=== PATIENT | male | born 1965 | race Caucasian/White ===

== ENCOUNTER 2018-11-24 05:32 | Inpatient (IN) ==
[2018-11-23 12:01] LABS: Basophils # 0.1 10*3/uL (0.0-0.2); Basophils % 1.4 % (0.0-0.8); Eosinophils # 0.3 10*3/uL (0.0-0.87); Eosinophils % 5.5 % (0.00-10.9); Hematocrit 47.5 VOL% (42.0-52.0); Hemoglobin 14.7 GM/DL (14.0-18.0); Immature Granulocytes % 0.4 %; Immature Granulocytes Absolute 0.02 #; Lymphocytes # 1.6 10*3/uL (1.4-4.0); Lymphocytes % 32.5 % (21.2-54.2); Mean Corpuscular HGB Conc 30.9 GM/DL (32-36); Mean Corpuscular Hemoglobin 26 PG (27-34); Mean Corpuscular Volume 82.6 FL (87-102); Mean Platelet Volume 10.2 FL (9.6-12.0); Monocytes # 0.4 10*3/uL (0.11-0.8); Monocytes % 7.9 % (1.7-12.7); Neutrophils # 2.6 10*3/uL (1.4-7.4); Neutrophils % 52.3 % (38.7-73.9); Platelet Count 242 T/CUMM (130-400); Red Blood Count 5.75 MC/CUMM (3.8-5.5); Red Cell Distribution Width 13.1 % (9.3-17.3); White Blood Count 4.9 T/CUMM (4-12)
[2018-11-23 12:03] LABS: PT Patient Result 11.1 SECS; Partial Thromboplastin Time 26.5 SECS (0-40)
[2018-11-23 12:32] LABS: Calcium 9.5 MG/DL (8.5-10.1); Osmolality,Calculated 274.8 MOS/KG (273-304); Potassium 4.3 MMOL/L (3.5-5.1)
[2018-11-23 13:01] LABS: Apearance,Urine CLEAR (Clear); Bilirubin,Urine Negative (Negative); Blood, Urine Negative (Negative); Glucose,Urine (UA) >=500 mg/dL (Negative); Ketones,Urine Negative (Negative); Nitrite,Urine Negative (Negative); Protein,Urine Negative; Urine Color Straw (Yellow); Urine Specific Gravity 1.013 (1.001-1.035); Urine Urobilinogen < 2.0 EU/DL (0.2-1.0)
[~2018-11-24 05:32] MED LIST: CEFUROXIME INJ 1,500 MG in SYRINGE 1 EACH IV ONE; LACTATED RINGERS 1,000 ML IV SCH; PAPAVERINE 60 MG/2 ML VIAL ONE; SODIUM CHLORIDE 0.9% 1,000 ML IV PRN; TISSUE ADHESIVE 1 EACH APPLICATOR TOP ONE; VANCOMYCIN 1,000 MG VIAL ONE
[2018-11-24] MEDS ORDERED: CEFUROXIME 1,500 MG VIAL ONE (05:47)
[2018-11-24] MEDS ORDERED: DIAZEPAM 5 MG TABLET ONE (05:47)
[2018-11-24] MEDS ORDERED: FAMOTIDINE 20 MG TABLET ONE (05:47)
[2018-11-24] MEDS ORDERED: DIAZEPAM 5 MG TABLET PO STA (05:56)
[2018-11-24] MEDS ORDERED: FAMOTIDINE 20 MG TABLET PO STA (05:57)
[2018-11-24] MEDS ORDERED: NITROPRUSSIDE 50 MG/2 ML VIAL ONE (07:45)
[2018-11-24] MEDS ORDERED: ATROPINE 1 MG/10 ML SYRINGE ONE (07:46)
[2018-11-24] MEDS ORDERED: ALBUMIN 5% 12.5 GM/250 ML VIAL IV ONE (07:46)
[2018-11-24] MEDS ORDERED: CALCIUM CHLORIDE 1,000 MG/10 ML SYRINGE IV ONE (07:46)
[2018-11-24] MEDS ORDERED: SODIUM BICARBONATE 50 MEQ/50 ML VIAL IV ONE ×2 (07:46→11:18)
[2018-11-24 07:50] LABS: ABG Base Excess -0.2 MMOL/L (-2.5-2.5); ABG HCO3 24.3 MMOL/L (20-26); ABG Oxygen Saturation 99.7 % (95-100); ABG PCO2 40.6 MM HG (35-48); ABG PH 7.392 (7.35-7.45); ABG TCO2 21.6 MMOL/L (23-27); Glucose Heart Surgery 171 MG/DL (74-106); Hematocrit Heart Surgery 40.3 PERCENT (42-52); Hemoglobin Heart Surgery 13.1 G/DL (14.0-18.0); Ionized Calcium Arterial 1.15 MMOL/L (1.21-1.46); PCO2 Patient Temp Arterial 40.6 MMHG; PH Patient Temp Arterial 7.392; Patient Temperature 37 CELCIUS; Potassium Heart/CVR 4.1 MMOL/L (3.5-5.1); Sodium Heart/CVR 137 MMOL/L (135-145)
[2018-11-24 09:16] LABS: Hematocrit Heart Surgery 32.3 PERCENT (42-52); Hemoglobin Heart Surgery 10.5 G/DL (14.0-18.0); PCO2 Patient Temp Venous 38.8 MM HG; PH Patient Temp Venous 7.431; PO2 Patient Temp Venous 32.1 MM HG; Potassium Heart/CVR 4.5 MMOL/L (3.5-5.1); VBG Base Excess 1.6 MEQ/L (0-4); VBG HCO3 25.3 MEQ/L (24-28); VBG Oxygen Saturation 67.8 %; VBG PCO2 40.8 MMHG (41-51); VBG PH 7.416; VBG PO2 34.4 MMHG (17-40)
[2018-11-24 09:32] LABS: Apearance,Urine CLEAR (Clear); Bilirubin,Urine Negative (Negative); Blood, Urine Negative (Negative); Glucose,Urine (UA) >=500 mg/dL (Negative); Ketones,Urine Negative (Negative); Nitrite,Urine Negative (Negative); Protein,Urine Negative; Urine Color Straw (Yellow); Urine Specific Gravity 1.021 (1.001-1.035); Urine Urobilinogen < 2.0 EU/DL (0.2-1.0); WBC,Urine 1 /HPF (0-6)
[2018-11-24 09:37] LABS: Hematocrit Heart Surgery 30.1 PERCENT (42-52); Hemoglobin Heart Surgery 9.7 G/DL (14.0-18.0); PCO2 Patient Temp Venous 34.9 MM HG; PH Patient Temp Venous 7.465; PO2 Patient Temp Venous 32.6 MM HG; VBG Base Excess 1.7 MEQ/L (0-4); VBG HCO3 25.6 MEQ/L (24-28); VBG Oxygen Saturation 77.4 %; VBG PCO2 40.4 MMHG (41-51); VBG PH 7.42; VBG PO2 40.2 MMHG (17-40)
[2018-11-24 10:08] LABS: Hematocrit Heart Surgery 28.8 PERCENT (42-52); Hemoglobin Heart Surgery 9.3 G/DL (14.0-18.0); PCO2 Patient Temp Venous 32.2 MM HG; PH Patient Temp Venous 7.484; PO2 Patient Temp Venous 32.5 MM HG; Potassium Heart/CVR 5.5 MMOL/L (3.5-5.1); VBG Base Excess 1.3 MEQ/L (0-4); VBG HCO3 25.3 MEQ/L (24-28); VBG Oxygen Saturation 80.6 %; VBG PH 7.425; VBG PO2 42.9 MMHG (17-40)
[2018-11-24 10:38] LABS: Hematocrit Heart Surgery 28.1 PERCENT (42-52); Hemoglobin Heart Surgery 9.1 G/DL (14.0-18.0); PCO2 Patient Temp Venous 27.8 MM HG; PH Patient Temp Venous 7.529; PO2 Patient Temp Venous 25.6 MM HG; Potassium Heart/CVR 5.4 MMOL/L (3.5-5.1); VBG Base Excess 1.1 MEQ/L (0-4); VBG Oxygen Saturation 71.7 %; VBG PCO2 33.7 MMHG (41-51); VBG PH 7.469
[2018-11-24] MEDS ORDERED: PHENYLEPHRINE DRIP 40 MG/250 ML PREMIX IV ONE (10:46)
[2018-11-24] MEDS ORDERED: THROMBIN TOPICAL (RECOMBINANT) 5,000 UNIT VIAL TOP ONE (11:17)
[2018-11-24] MEDS ORDERED: DEXTROSE 5% KCL 20 MEQ 40 MEQ/2,000 ML BAG IV ONE (11:18)
[2018-11-24] MEDS ORDERED: ALBUMIN 25% 25 GM/100 ML VIAL IV ONE (11:18)
[2018-11-24] MEDS ORDERED: PROTAMINE SULFATE 250 MG/25 ML VIAL IV ONE (11:18)
[2018-11-24] MEDS ORDERED: MANNITOL 100 GM/500 ML BAG IV ONE (11:18)
[2018-11-24] MEDS ORDERED: MAGNESIUM SULFATE 10 GM/20 ML VIAL IV ONE (11:19)
[2018-11-24] MEDS ORDERED: HEPARIN 10,000 UNIT/10 ML VIAL ONE (11:19)
[2018-11-24] MEDS ORDERED: methylPREDNISolone SOD SUC 1,000 MG/8 ML VIAL ONE (11:19)
[2018-11-24] MEDS ORDERED: FUROSEMIDE 20 MG/2 ML VIAL ONE (11:19)
[2018-11-24 11:29] LABS: ABG HCO3 22.8 MMOL/L (20-26); ABG Oxygen Saturation 98.9 % (95-100); ABG PCO2 33.8 MM HG (35-48); Glucose Heart Surgery 309 MG/DL (74-106); Hematocrit Heart Surgery 30.5 PERCENT (42-52); Hemoglobin Heart Surgery 9.9 G/DL (14.0-18.0); PCO2 Patient Temp Arterial 33.8 MMHG; Patient Temperature 37 CELCIUS; Sodium Heart/CVR 129 MMOL/L (135-145)
[2018-11-24] MEDS ORDERED: POTASSIUM CHLORIDE RIDER 100 ML IV ONE (11:51)
[2018-11-24] MEDS ORDERED: CALCIUM CHLORIDE 1,000 MG/10 ML SYRINGE IV PRN (12:09)
[2018-11-24] MEDS ORDERED: CHLORHEXIDINE 4% SOLN 118 ML BOTTLE TOP PRN (12:09)
[2018-11-24] MEDS ORDERED: MAGNESIUM SULF RIDER 2 GM in PREMIX 1 EACH IV PRN (12:09)
[2018-11-24] MEDS ORDERED: ONDANSETRON 4 MG/2 ML VIAL IV PRN (12:09)
[2018-11-24] MEDS ORDERED: MAGNESIUM SULF RIDER 4 GM in PREMIX 1 EACH IV PRN (12:09)
[2018-11-24] MEDS ORDERED: INSULIN REGULAR 100 UNIT/ML IV PRN (12:09)
[2018-11-24] MEDS ORDERED: ACETAMINOPHEN 650 MG SUPP RECTAL PRN (12:09)
[2018-11-24] MEDS ORDERED: MIDAZOLAM 2 MG/2 ML VIAL IV PRN (12:09)
[2018-11-24] MEDS ORDERED: DEXTROSE 50% 25 GM/50 ML SYRINGE IV PRN ×2 (12:09)
[2018-11-24] MEDS: SODIUM CHLORIDE 0.45% 1,000 ML IV SCH (12:10)
[2018-11-24] MEDS ORDERED: HEPARIN/NACL 0.9% 2 UNITS/ML 500 ML IV ONE (12:20)
[2018-11-24] MEDS ORDERED: CALCIUM CHLORIDE 1,000 MG/10 ML VIAL IV ONE (12:20)
[2018-11-24] MEDS ORDERED: SEVOFLURANE 1 UNIT/15 MINUTE INH ONE (12:20)
[2018-11-24] MEDS ORDERED: SUFentanil 250 MCG/5 ML AMP ONE (12:20)
[2018-11-24] MEDS ORDERED: SODIUM CHLORIDE 0.9% 1,000 ML IV ONE (12:21)
[2018-11-24] MEDS ORDERED: LACTATED RINGERS 1,000 ML IV ONE (12:21)
[2018-11-24] MEDS ORDERED: VECURONIUM 10 MG VIAL IV ONE (12:21)
[2018-11-24] MEDS ORDERED: PHENYLEPHRINE 10 MG/1 ML VIAL IV ONE (12:21)
[2018-11-24] MEDS ORDERED: MIDAZOLAM 10 MG/2 ML VIAL ONE (12:21)
[2018-11-24] MEDS ORDERED: AMINOCAPROIC ACID 5,000 MG/20 ML VIAL ONE (12:21)
[2018-11-24] MEDS ORDERED: NITROGLYCERIN DRIP 50 MG/250 ML BOTTLE IV ONE (12:21)
[2018-11-24] MEDS ORDERED: SODIUM CHLORIDE 0.9% 500 ML IV ONE (12:21)
[2018-11-24] MEDS: SODIUM CHLORIDE 0.9% 250 ML IV PRN ×12 (12:27→18:21)
[2018-11-24] MEDS ORDERED: INSULIN REGULAR DRIP 100 ML IV SCH (12:30)
[2018-11-24] MEDS ORDERED: SODIUM CHLORIDE 0.45% 1,000 ML IV SCH (12:30)
[2018-11-24 12:53] LABS: ABG Base Excess -0.5 MMOL/L (-2.5-2.5); ABG Oxygen Saturation 95.8 % (95-100); ABG PCO2 36.2 MM HG (35-48); ABG PH 7.422 (7.35-7.45); ABG PO2 76.1 MM HG (80-95); ABG TCO2 20.9 MMOL/L (23-27); Basophils % 0.6 % (0.0-0.8); Eosinophils # 0.1 10*3/uL (0.0-0.87); Eosinophils % 1.1 % (0.00-10.9); Glucose Heart Surgery 218 MG/DL (74-106); Hematocrit 35.4 VOL% (42.0-52.0); Hematocrit Heart Surgery 36.3 PERCENT (42-52); Hemoglobin 11.4 GM/DL (14.0-18.0); Hemoglobin Heart Surgery 11.8 G/DL (14.0-18.0); Immature Granulocytes % 0.4 %; Immature Granulocytes Absolute 0.03 #; Lymphocytes # 0.6 10*3/uL (1.4-4.0); Lymphocytes % 8.6 % (21.2-54.2); Mean Corpuscular HGB Conc 32.2 GM/DL (32-36); Mean Corpuscular Hemoglobin 26 PG (27-34); Mean Platelet Volume 10.4 FL (9.6-12.0); Monocytes # 0.3 10*3/uL (0.11-0.8); Monocytes % 4.1 % (1.7-12.7); Neutrophils # 6.1 10*3/uL (1.4-7.4); Neutrophils % 85.2 % (38.7-73.9); Platelet Count 181 T/CUMM (130-400); Potassium Heart/CVR 3.4 MMOL/L (3.5-5.1); Red Blood Count 4.37 MC/CUMM (3.8-5.5); Red Cell Distribution Width 12.9 % (9.3-17.3); White Blood Count 7.1 T/CUMM (4-12)
[2018-11-24] MEDS: POTASSIUM CHLORIDE RIDER 20 MEQ in PREMIX 1 EACH IV PRN ×3 (12:58→16:12)
[2018-11-24 13:03] LABS: INR 1.1; PT Patient Result 11.4 SECS; Partial Thromboplastin Time 25.9 SECS (0-40)
[2018-11-24 13:08] LABS: Blood Urea Nitrogen 17 MG/DL (7-18); Calcium 9.8 MG/DL (8.5-10.1); Glucose 210 MG/DL (74-106); Osmolality,Calculated 284.5 MOS/KG (273-304); Potassium 3.4 MMOL/L (3.5-5.1); Sodium 139 MMOL/L (136-145)
[2018-11-24] MEDS ORDERED: ASPIRIN 325 MG TABLET PO ONE (13:20)
[2018-11-24] MEDS: ALBUMIN 5% 12.5 GM in PREMIX 1 EACH IV PRN ×4 (13:25→18:15)
[2018-11-24 15:46] LABS: ABG Base Excess -1.1 MMOL/L (-2.5-2.5); ABG HCO3 23.2 MMOL/L (20-26); ABG Oxygen Saturation 97.5 % (95-100); ABG PCO2 37.2 MM HG (35-48); ABG PH 7.413 (7.35-7.45); ABG PO2 113.2 MM HG (80-95); ABG TCO2 24.4 MMOL/L (23-27); Glucose Heart Surgery 118 MG/DL (74-106); Hemoglobin Heart Surgery 10.9 G/DL (14.0-18.0); Potassium Heart/CVR 3.6 MMOL/L (3.5-5.1)
[2018-11-24] MEDS: POTASSIUM CHLORIDE RIDER 10 MEQ in PREMIX 1 EACH IV PRN (16:44)
[2018-11-24 17:34] LABS: ABG Base Excess -3.4 MMOL/L (-2.5-2.5); ABG HCO3 22.5 MMOL/L (20-26); ABG Oxygen Saturation 97.5 % (95-100); ABG PCO2 44.4 MM HG (35-48); ABG PH 7.323 (7.35-7.45); ABG PO2 120.4 MM HG (80-95); ABG TCO2 23.9 MMOL/L (23-27); Glucose Heart Surgery 119 MG/DL (74-106); Hemoglobin Heart Surgery 10.3 G/DL (14.0-18.0)
[2018-11-24 20:12] LABS: ABG Base Excess -2.8 MMOL/L (-2.5-2.5); ABG HCO3 21.7 MMOL/L (20-26); ABG Oxygen Saturation 97.3 % (95-100); ABG PCO2 36.4 MM HG (35-48); ABG PH 7.393 (7.35-7.45); ABG PO2 107.4 MM HG (80-95); ABG TCO2 22.8 MMOL/L (23-27); Glucose Heart Surgery 170 MG/DL (74-106); Hemoglobin Heart Surgery 10.2 G/DL (14.0-18.0); Potassium Heart/CVR 4.2 MMOL/L (3.5-5.1)
[2018-11-24] MEDS: CEFUROXIME INJ 1,500 MG in SYRINGE 1 EACH IV SCH (20:12)
[2018-11-24] MEDS: CHLORHEXIDINE 0.12% ORAL RINSE 60 ML BOTTLE SWISH/SPIT SCH (21:38)
[2018-11-25] MEDS: MORPHINE 4 MG/1 ML VIAL IV PRN ×4 (00:25→17:46)
[2018-11-25] MEDS: SODIUM CHLORIDE 0.45% 1,000 ML IV SCH (01:33)
[2018-11-25 04:22] LABS: Basophils % 0.1 % (0.0-0.8); Hematocrit 29.7 VOL% (42.0-52.0); Hemoglobin 9.4 GM/DL (14.0-18.0); Immature Granulocytes % 0.6 %; Immature Granulocytes Absolute 0.05 #; Lymphocytes # 0.4 10*3/uL (1.4-4.0); Lymphocytes % 4.4 % (21.2-54.2); Mean Corpuscular HGB Conc 31.6 GM/DL (32-36); Mean Corpuscular Hemoglobin 26 PG (27-34); Mean Corpuscular Volume 82.7 FL (87-102); Mean Platelet Volume 10.4 FL (9.6-12.0); Monocytes # 0.6 10*3/uL (0.11-0.8); Monocytes % 6.5 % (1.7-12.7); Neutrophils # 7.9 10*3/uL (1.4-7.4); Neutrophils % 88.4 % (38.7-73.9); Platelet Count 163 T/CUMM (130-400); Red Blood Count 3.59 MC/CUMM (3.8-5.5); Red Cell Distribution Width 13.3 % (9.3-17.3); White Blood Count 8.9 T/CUMM (4-12)
[2018-11-25 04:50] LABS: Hypochromasia Slight; Lymphocytes 3 % (20-55); Platelet Estimate Decreased; Segmented Neutrophils 96 % (50-85); Total Cells Counted 100
[2018-11-25 05:08] LABS: Calcium 7.8 MG/DL (8.5-10.1); Osmolality,Calculated 284.1 MOS/KG (273-304); Potassium 3.8 MMOL/L (3.5-5.1)
[2018-11-25] MEDS: POTASSIUM CHLORIDE RIDER 20 MEQ in PREMIX 1 EACH IV PRN (06:42)
[2018-11-25] MEDS: POTASSIUM CHLORIDE RIDER 10 MEQ in PREMIX 1 EACH IV PRN (07:11)
[2018-11-25] MEDS ORDERED: KETOROLAC 30 MG/1 ML VIAL IV ONE (07:36)
[2018-11-25] MEDS: CEFUROXIME INJ 1,500 MG in SYRINGE 1 EACH IV SCH ×2 (08:25→20:24)
[2018-11-25] MEDS: CHLORHEXIDINE 0.12% ORAL RINSE 60 ML BOTTLE SWISH/SPIT SCH ×2 (08:33→20:24)
[2018-11-25] MEDS: FUROSEMIDE 40 MG TABLET PO SCH (08:33)
[2018-11-25] MEDS: ASPIRIN EC 325 MG TABLET PO SCH (08:33)
[2018-11-25] MEDS: PANTOPRAZOLE 40 MG VIAL IV SCH (10:45)
[2018-11-25] MEDS: CLOPIDOGREL 75 MG TABLET PO SCH (10:54)
[2018-11-25] MEDS: MORPHINE 10 MG/1 ML VIAL IV PRN ×2 (20:24→22:28)
[2018-11-25] MEDS: ATORVASTATIN 40 MG TABLET PO SCH (20:24)
[2018-11-25] MEDS: INSULIN GLARGINE 100 UNIT/ML SUBCUT SCH (21:37)
[2018-11-26] MEDS: MORPHINE 10 MG/1 ML VIAL IV PRN ×5 (00:30→22:20)
[2018-11-26 04:40] LABS: Calcium 8.5 MG/DL (8.5-10.1); Osmolality,Calculated 282.5 MOS/KG (273-304); Potassium 4.1 MMOL/L (3.5-5.1)
[2018-11-26 04:42] LABS: Basophils % 0.2 % (0.0-0.8); Hemoglobin 9.2 GM/DL (14.0-18.0); Immature Granulocytes % 0.6 %; Immature Granulocytes Absolute 0.06 #; Lymphocytes # 1.2 10*3/uL (1.4-4.0); Lymphocytes % 12.1 % (21.2-54.2); Mean Corpuscular HGB Conc 30.7 GM/DL (32-36); Mean Corpuscular Hemoglobin 26 PG (27-34); Mean Corpuscular Volume 84.7 FL (87-102); Mean Platelet Volume 10.8 FL (9.6-12.0); Monocytes % 10.6 % (1.7-12.7); Neutrophils # 7.4 10*3/uL (1.4-7.4); Neutrophils % 76.5 % (38.7-73.9); Platelet Count 177 T/CUMM (130-400); Red Blood Count 3.54 MC/CUMM (3.8-5.5); Red Cell Distribution Width 13.4 % (9.3-17.3); White Blood Count 9.6 T/CUMM (4-12)
[2018-11-26] MEDS: FUROSEMIDE 40 MG TABLET PO SCH (09:25)
[2018-11-26] MEDS: ASPIRIN EC 325 MG TABLET PO SCH (09:25)
[2018-11-26] MEDS: CLOPIDOGREL 75 MG TABLET PO SCH (09:25)
[2018-11-26] MEDS: CHLORHEXIDINE 0.12% ORAL RINSE 60 ML BOTTLE SWISH/SPIT SCH ×2 (09:30→21:19)
[2018-11-26] MEDS: PANTOPRAZOLE 40 MG VIAL IV SCH (09:30)
[2018-11-26] MEDS: METOPROLOL TARTRATE 25 MG TABLET PO SCH ×2 (09:45→21:21)
[2018-11-26] MEDS: INSULIN GLARGINE 100 UNIT/ML SUBCUT SCH (21:20)
[2018-11-26] MEDS: ATORVASTATIN 40 MG TABLET PO SCH (21:21)
[2018-11-26] MEDS: OMEGA 3 ACID ETHYL ESTERS 1 GM CAPSULE PO SCH (21:21)
[2018-11-27 05:39] LABS: Calcium 8.4 MG/DL (8.5-10.1); Osmolality,Calculated 278.8 MOS/KG (273-304); Potassium 3.8 MMOL/L (3.5-5.1)
[2018-11-27 05:41] LABS: Basophils % 0.3 % (0.0-0.8); Eosinophils % 0.5 % (0.00-10.9); Hematocrit 30.4 VOL% (42.0-52.0); Hemoglobin 9.4 GM/DL (14.0-18.0); Immature Granulocytes % 0.5 %; Immature Granulocytes Absolute 0.04 #; Lymphocytes # 1.3 10*3/uL (1.4-4.0); Lymphocytes % 15.3 % (21.2-54.2); Mean Corpuscular HGB Conc 30.9 GM/DL (32-36); Mean Corpuscular Hemoglobin 26 PG (27-34); Mean Corpuscular Volume 84.4 FL (87-102); Mean Platelet Volume 10.7 FL (9.6-12.0); Monocytes # 0.9 10*3/uL (0.11-0.8); Monocytes % 10.6 % (1.7-12.7); Neutrophils # 6.3 10*3/uL (1.4-7.4); Neutrophils % 72.8 % (38.7-73.9); Platelet Count 189 T/CUMM (130-400); Red Cell Distribution Width 13.1 % (9.3-17.3); White Blood Count 8.6 T/CUMM (4-12)
[2018-11-27] MEDS: FENOFIBRATE 160 MG TABLET PO SCH (08:38)
[2018-11-27] MEDS: OMEGA 3 ACID ETHYL ESTERS 1 GM CAPSULE PO SCH ×2 (08:38→21:54)
[2018-11-27] MEDS: ASPIRIN EC 325 MG TABLET PO SCH (08:39)
[2018-11-27] MEDS: PANTOPRAZOLE 40 MG TABLET PO SCH (08:39)
[2018-11-27] MEDS: METOPROLOL TARTRATE 25 MG TABLET PO SCH ×2 (08:39→21:54)
[2018-11-27] MEDS: CLOPIDOGREL 75 MG TABLET PO SCH (08:39)
[2018-11-27] MEDS: FUROSEMIDE 40 MG TABLET PO SCH (08:39)
[2018-11-27] MEDS: POTASSIUM CHLORIDE RIDER 10 MEQ in PREMIX 1 EACH IV PRN ×2 (08:40→09:36)
[2018-11-27] MEDS ORDERED: HEMP OIL PO SCH (09:00)
[2018-11-27] MEDS ORDERED: METOPROLOL TARTRATE 25 MG TABLET PO ONE (09:02)
[2018-11-27] MEDS: CHLORHEXIDINE 0.12% ORAL RINSE 60 ML BOTTLE SWISH/SPIT SCH ×2 (09:25→21:57)
[2018-11-27] MEDS: ATORVASTATIN 40 MG TABLET PO SCH (21:54)
[2018-11-27] MEDS: INSULIN GLARGINE 100 UNIT/ML SUBCUT SCH (21:54)
[2018-11-27] MEDS: MORPHINE 4 MG/1 ML VIAL IV PRN (22:01)
[2018-11-28] MEDS ORDERED: BISACODYL 5 MG TABLET PO PRN (07:35)
[2018-11-28] MEDS: PANTOPRAZOLE 40 MG TABLET PO SCH (10:02)
[2018-11-28] MEDS: OMEGA 3 ACID ETHYL ESTERS 1 GM CAPSULE PO SCH ×2 (10:02→20:36)
[2018-11-28] MEDS: METOPROLOL TARTRATE 25 MG TABLET PO SCH ×2 (10:03→20:37)
[2018-11-28] MEDS: DOCUSATE SODIUM 100 MG CAPSULE PO SCH ×2 (10:03→20:36)
[2018-11-28] MEDS: ASPIRIN EC 325 MG TABLET PO SCH (10:03)
[2018-11-28] MEDS: FUROSEMIDE 40 MG TABLET PO SCH (10:03)
[2018-11-28] MEDS: FENOFIBRATE 160 MG TABLET PO SCH (10:03)
[2018-11-28] MEDS: CLOPIDOGREL 75 MG TABLET PO SCH (10:03)
[2018-11-28] MEDS: CHLORHEXIDINE 0.12% ORAL RINSE 60 ML BOTTLE SWISH/SPIT SCH ×2 (10:10→20:37)
[2018-11-28] MEDS ORDERED: FUROSEMIDE 40 MG/4 ML VIAL IV ONE (11:36)
[2018-11-28] MEDS ORDERED: INSULIN GLARGINE 100 UNIT/ML SUBCUT SCH (15:34)
[2018-11-28] MEDS: metFORMIN 500 MG TABLET PO SCH (18:08)
[2018-11-28] MEDS: ATORVASTATIN 40 MG TABLET PO SCH (20:36)
[2018-11-28] MEDS: MORPHINE 4 MG/1 ML VIAL IV PRN (21:33)
[2018-11-29 05:21] LABS: Basophils # 0.1 10*3/uL (0.0-0.2); Basophils % 0.7 % (0.0-0.8); Eosinophils # 0.2 10*3/uL (0.0-0.87); Eosinophils % 3.3 % (0.00-10.9); Hematocrit 34.1 VOL% (42.0-52.0); Hemoglobin 10.6 GM/DL (14.0-18.0); Immature Granulocytes % 0.8 %; Immature Granulocytes Absolute 0.06 #; Lymphocytes # 1.9 10*3/uL (1.4-4.0); Lymphocytes % 25.2 % (21.2-54.2); Mean Corpuscular HGB Conc 31.1 GM/DL (32-36); Mean Corpuscular Hemoglobin 26 PG (27-34); Mean Corpuscular Volume 82.8 FL (87-102); Mean Platelet Volume 10.4 FL (9.6-12.0); Monocytes # 0.7 10*3/uL (0.11-0.8); Monocytes % 9.8 % (1.7-12.7); Neutrophils # 4.4 10*3/uL (1.4-7.4); Neutrophils % 60.2 % (38.7-73.9); Platelet Count 297 T/CUMM (130-400); Red Blood Count 4.12 MC/CUMM (3.8-5.5); White Blood Count 7.3 T/CUMM (4-12)
[2018-11-29 05:39] LABS: Calcium 8.8 MG/DL (8.5-10.1); Osmolality,Calculated 276.1 MOS/KG (273-304); Potassium 3.3 MMOL/L (3.5-5.1)
[2018-11-29] MEDS: POTASSIUM CHLORIDE RIDER 20 MEQ in PREMIX 1 EACH IV PRN ×2 (09:15→11:09)
[2018-11-29] MEDS: CLOPIDOGREL 75 MG TABLET PO SCH (09:17)
[2018-11-29] MEDS: OMEGA 3 ACID ETHYL ESTERS 1 GM CAPSULE PO SCH ×2 (09:17→20:47)
[2018-11-29] MEDS: ASPIRIN EC 325 MG TABLET PO SCH (09:17)
[2018-11-29] MEDS: metFORMIN 500 MG TABLET PO SCH ×2 (09:17→17:57)
[2018-11-29] MEDS: PANTOPRAZOLE 40 MG TABLET PO SCH (09:17)
[2018-11-29] MEDS: FENOFIBRATE 160 MG TABLET PO SCH (09:17)
[2018-11-29] MEDS: FUROSEMIDE 40 MG TABLET PO SCH (09:17)
[2018-11-29] MEDS: DOCUSATE SODIUM 100 MG CAPSULE PO SCH ×2 (09:17→20:50)
[2018-11-29] MEDS: METOPROLOL TARTRATE 25 MG TABLET PO SCH ×2 (09:21→20:46)
[2018-11-29] MEDS: CHLORHEXIDINE 0.12% ORAL RINSE 60 ML BOTTLE SWISH/SPIT SCH ×2 (09:25→20:47)
[2018-11-29] MEDS ORDERED: POTASSIUM CHLORIDE 20 MEQ TABLET PO ONE (10:58)
[2018-11-29] MEDS ORDERED: INSULIN GLARGINE 100 UNIT/ML SUBCUT SCH (16:10)
[2018-11-29] MEDS: ATORVASTATIN 40 MG TABLET PO SCH (20:47)
[2018-11-30 05:06] LABS: Basophils % 0.5 % (0.0-0.8); Eosinophils # 0.3 10*3/uL (0.0-0.87); Eosinophils % 3.3 % (0.00-10.9); Hematocrit 33.6 VOL% (42.0-52.0); Hemoglobin 10.7 GM/DL (14.0-18.0); Immature Granulocytes % 0.7 %; Immature Granulocytes Absolute 0.05 #; Lymphocytes # 2.3 10*3/uL (1.4-4.0); Lymphocytes % 30.1 % (21.2-54.2); Mean Corpuscular HGB Conc 31.8 GM/DL (32-36); Mean Corpuscular Hemoglobin 26 PG (27-34); Mean Platelet Volume 10.2 FL (9.6-12.0); Monocytes # 0.7 10*3/uL (0.11-0.8); Monocytes % 8.9 % (1.7-12.7); Neutrophils # 4.3 10*3/uL (1.4-7.4); Neutrophils % 56.5 % (38.7-73.9); Platelet Count 311 T/CUMM (130-400); White Blood Count 7.6 T/CUMM (4-12)
[2018-11-30 05:31] LABS: Calcium 8.9 MG/DL (8.5-10.1); Osmolality,Calculated 280.7 MOS/KG (273-304); Potassium 3.5 MMOL/L (3.5-5.1)
[2018-11-30 08:12] VITALS: BP 117/67
[2018-11-30] MEDS ORDERED: POTASSIUM CHLORIDE 20 MEQ TABLET PO SCH (09:00)
[2018-11-30] MEDS: FUROSEMIDE 40 MG TABLET PO SCH (09:12)
[2018-11-30] MEDS: FENOFIBRATE 160 MG TABLET PO SCH (09:12)
[2018-11-30] MEDS: CLOPIDOGREL 75 MG TABLET PO SCH (09:12)
[2018-11-30] MEDS: METOPROLOL TARTRATE 25 MG TABLET PO SCH (09:13)
[2018-11-30] MEDS: ASPIRIN EC 325 MG TABLET PO SCH (09:13)
[2018-11-30] MEDS: metFORMIN 500 MG TABLET PO SCH (09:13)
[2018-11-30] MEDS: OMEGA 3 ACID ETHYL ESTERS 1 GM CAPSULE PO SCH (09:13)
[2018-11-30] MEDS: PANTOPRAZOLE 40 MG TABLET PO SCH (09:13)
[2018-11-30] MEDS: CHLORHEXIDINE 0.12% ORAL RINSE 60 ML BOTTLE SWISH/SPIT SCH (09:14)
[2018-11-30] MEDS: DOCUSATE SODIUM 100 MG CAPSULE PO SCH (09:19)
[2018-11-30] MEDS ORDERED: POTASSIUM CHLORIDE 20 MEQ TABLET PO ONE (09:21)
== END 2018-11-30 11:45 | disposition home health service (06) | DRG 220 ==
LOC: N.SDSINP 05:32 → N.CVR 09:07 → N.ICU 11-25 09:55 → N.TELES 11-26 15:33
PROVIDERS: ADMIT Thoracic Surgery (Cardiothoracic Vascular Surgery); ATTEND Thoracic Surgery (Cardiothoracic Vascular Surgery)